=== PATIENT | female | born 1935 | race Asian ===

== ENCOUNTER 2019-03-11 08:09 | Emergency (ER) | payer OTHER ==
[~2019-03-11] VITALS: Ht 152.4 cm; Wt 61.4 kg
[2019-03-11 08:25] LABS: GLUCOSE,POINT OF CARE 147 MG/DL (70-110)
[2019-03-11] MEDS ORDERED: ASPI-556 PO (08:30)
[2019-03-11] MEDS ORDERED: GLIP10 PO (08:30)
[2019-03-11] MEDS ORDERED: ATOR20TA86 PO (08:30)
[2019-03-11] MEDS ORDERED: LINA5TAB PO (08:30)
[2019-03-11] MEDS ORDERED: VALS160T2 PO (08:30)
[2019-03-11] MEDS ORDERED: METF-960 PO (08:30)
[2019-03-11] MEDS ORDERED: SODIUM CHLORIDE 0.9% 100 ML ONE (08:36)
[2019-03-11] MEDS ORDERED: IOVERSOL 350 MG/ML 100 ML VIAL ONE (08:37)
[2019-03-11 08:51] LABS: BASOPHILS % (AUTO) 0.3 % (0.0-2.0); EOSINOPHILS % (AUTO) 0.3 % (1.0-6.0); HEMATOCRIT 40.2 % (36-46); HEMOGLOBIN 13.3 g/dL (12.0-16.0); LYMPHOCYTES # (AUTO) 1.8 K/uL (1.0-4.8); LYMPHOCYTES % (AUTO) 27.6 % (22.0-44.0); MEAN CORPUSCULAR HEMOGLOBIN 26.6 pg (26.0-34.0); MEAN CORPUSCULAR HGB CONC 33.1 G/dL (31.0-37.0); MEAN CORPUSCULAR VOLUME 80 fL (80-100); MONOCYTES # (AUTO) 0.4 K/uL (0.1-1.0); MONOCYTES % (AUTO) 6.3 % (2.0-9.0); NEUTROPHILS # (AUTO) 4.2 K/uL (1.8-7.7); NEUTROPHILS % (AUTO) 65.5 % (40.0-70.0); PLATELET COUNT (AUTO) 232 K/uL (150-450); RED CELL DISTRIBUTION WIDTH 14.1 % (11.5-14.5)
[2019-03-11 09:04] LABS: ANION GAP 9 mmol/L (8-16); CALCIUM, TOTAL 9.1 mg/dL (8.8-10.5); CARBON DIOXIDE 26 mmol/L (22-29); CHLORIDE 104 mmol/L (98-107); CREATININE 0.78 mg/dL (0.60-1.30); GLOMERULAR FILTR. RATE CALC > 60 mL/min (>60); GLUCOSE,RANDOM 173 mg/dL (70-110); POTASSIUM 4.1 mmol/L (3.5-5.1); SODIUM SERUM 139 mmol/L (136-145); UREA NITROGEN, BLOOD 16 mg/dL (7-18)
[2019-03-11 09:10] LABS: ALANINE AMINOTRANSFERASE 25 U/L (12-78); ALBUMIN 3.5 g/dL (3.4-5.0); ALKALINE PHOSPHATASE 80 U/L (46-116); ASPARTATE AMINOTRANSFERASE 23 U/L (15-37); BILIRUBIN,TOTAL 0.6 mg/dL (0.1-1.0); TOTAL PROTEIN, SERUM 7.7 g/dL (6.4-8.2)
[2019-03-11] MEDS ORDERED: ASPIRIN 81 MG CHEWABLE TABLET PO ONE (13:00)
[2019-03-11] MEDS ORDERED: ONDANSETRON HCL 4 MG/2 ML VIAL IVP ONE (13:45)
[2019-03-11] MEDS: MECLIZINE HCL 25 MG TABLET PO ONE ×2 (14:24→14:49)
[2019-03-11 19:00] VITALS: BP 115/60
[2019-03-11] MEDS ORDERED: OXYGEN THERAPY IH SCH (20:00)
== END 2019-03-11 19:54 | disposition other institution (70) ==
LOC: EMS 08:10 → UNDOADMIN 15:00 → 5S 15:00 → EMS 19:54
DX: G45.9 Transient cerebral ischemic attack, unspecified (principal); E11.9 Type 2 diabetes mellitus without complications; I10 Essential (primary) hypertension; Z79.82 Long term (current) use of aspirin; Z79.84 Long term (current) use of oral hypoglycemic drugs
CPT/HCPCS: 36415; 70450; 70496; 71045; 80053; 82962; 84484; 85025; 85610; 85730; 86850; 86900; 86901; 93005; 96374; 99291; J2405; J7050; Q9967

== ENCOUNTER 2021-05-10 12:25 | Emergency (ER) | payer OTHER ==
[~2021-05-10] VITALS: Ht 154.9 cm; Wt 60.0 kg
[~2021-05-10 12:25] MED LIST: ASPI-556 PO; ATOR20TA86 PO; GLIP10 PO; LINA5TAB PO; METF-960 PO; VALS160T2 PO
[2021-05-10] MEDS ORDERED: AMLO-383 PO (12:56)
[2021-05-10] MEDS ORDERED: EMPA10TA PO (12:56)
[2021-05-10] MEDS ORDERED: KETOROLAC TROMETHAMINE 30 MG/ML VIAL IVP ONE (15:30)
[2021-05-10] MEDS ORDERED: DiphenhydrAMINE HCL 50 MG/ML VIAL IVP ONE (15:30)
[2021-05-10] MEDS ORDERED: METOCLOPRAMIDE HCL 5 MG/ML 2 ML VIAL IVP ONE (15:30)
[2021-05-10] MEDS ORDERED: SODIUM CHLORIDE 0.9% 1,000 ML IV ONE (15:30)
[2021-05-10] MEDS ORDERED: ASPI-1444 PO (15:32)
[2021-05-10 16:07] LABS: BASOPHILS % (AUTO) 0.2 % (0.0-2.0); EOSINOPHILS % (AUTO) 0.3 % (1.0-6.0); HEMATOCRIT 46.8 % (36-46); HEMOGLOBIN 15.3 g/dL (12.0-16.0); LYMPHOCYTES # (AUTO) 1.9 K/uL (1.0-4.8); LYMPHOCYTES % (AUTO) 29.2 % (22.0-44.0); MEAN CORPUSCULAR HEMOGLOBIN 27.5 pg (26.0-34.0); MEAN CORPUSCULAR HGB CONC 32.8 G/dL (31.0-37.0); MEAN CORPUSCULAR VOLUME 84 fL (80-100); MONOCYTES # (AUTO) 0.3 K/uL (0.1-1.0); NEUTROPHILS # (AUTO) 4.3 K/uL (1.8-7.7); NEUTROPHILS % (AUTO) 65.3 % (40.0-70.0); PLATELET COUNT (AUTO) 256 K/uL (150-450); RED BLOOD CELL COUNT(AUTO) 5.58 MIL/uL (4.00-5.20); RED CELL DISTRIBUTION WIDTH 13.6 % (11.5-14.5)
[2021-05-10 16:17] LABS: ANION GAP 8 mmol/L (8-16); CALCIUM, TOTAL 9.3 mg/dL (8.8-10.5); CARBON DIOXIDE 27 mmol/L (22-29); CHLORIDE 103 mmol/L (98-107); CREATININE 0.88 mg/dL (0.60-1.30); GLOMERULAR FILTR. RATE CALC > 60 mL/min (>60); GLUCOSE,RANDOM 139 mg/dL (70-110); SODIUM SERUM 138 mmol/L (136-145); UREA NITROGEN, BLOOD 23 mg/dL (7-18)
[2021-05-10 17:44] VITALS: BP 132/68
== END 2021-05-10 17:58 | disposition home or self-care (01) ==
LOC: EMS 12:31
DX: R51.9 Headache, unspecified (principal); R42 Dizziness and giddiness; H53.8 Other visual disturbances
CPT/HCPCS: 36415; 70450; 80048; 82962; 85025; 96361; 96374; 96375; 99284; J1200; J1885; J2765; J7030; 82948